=== PATIENT | male | born 1965 | race American Indian/Alaskan Native ===

== ENCOUNTER 2016-09-27 17:42 | Emergency (ER) | payer OTHER ==
[2016-09-27] MEDS ORDERED: ZOFRAN ODT PO ONE (20:16)
[2016-09-27] MEDS ORDERED: MOTRIN PO ONE (20:16)
--- NOTE | 2016-09-27 20:17 | Emergency Department Report ---
HPI - General Chief Complaint: Upper Respiratory Infection Time Seen by Provider: 09/27/16 20:00 - HPI HPI: Patient here complainiing of fever, headache, chills, diarrhea and n/v since last night. no diarrhea or vomiting today. Generalized pain 8/10. Feels achy. To otc cold and cough without relief. Denies abdominal or back pain. Reports coughing and nasal congestion. Pain to head achy frontally. Denies urinary burning, Frequency or urgency. no cp or sob. He is able to tolerate oral liquids . ED Past Medical Hx - Past Medical History Previous Medical History?: Yes Hx Headaches / Migraines: Yes - Surgical History Past Surgical History?: Yes Additional Surgical History: "3 knee surgery" "shoulder surgery" "hernia" - Family History Family history: hypertension - Social History Smoking Status: Current Every Day Smoker Substance Use Type: None - Medications Home Medications: Home Medications Medication Instructions Recorded Confirmed Last Taken Type Acetaminophen/Codeine [Tylenol #3] 1 tab PO Q6H PRN #15 tab 12/09/14 Unknown Rx Brompheniramine/Pseudoephed/Dm 5 ml PO Q6H PRN #200 syrup 09/27/16 Unknown Rx [Bromfed Dm Cough Syrup] Cetirizine HCl [ZyrTEC] 10 mg PO QDAY #14 capsule 09/27/16 Unknown Rx Fluticasone [Flonase] 1 spray NS QDAY #1 bottle 09/27/16 Unknown Rx Ibuprofen [Motrin] 600 mg PO Q6H PRN #20 tablet 09/27/16 Unknown Rx Promethazine [Phenergan TAB] 25 mg PO Q8HR PRN #12 tab 09/27/16 Unknown Rx ED Review of Systems ROS: Stated complaint: FEVER/CHILLS/DIARRHEA/VOMITING Other details as noted in HPI Comment: All other systems reviewed and negative Constitutional: chills, fever Eyes: denies: eye discharge ENT: congestion. denies: ear pain, throat pain Respiratory: cough. denies: shortness of breath, SOB with exertion, SOB at rest , stridor, wheezing Cardiovascular: denies: chest pain, palpitations, edema, syncope Gastrointestinal: nausea, vomiting, diarrhea. denies: abdominal pain, constipation Genitourinary: denies: urgency, dysuria, frequency, hematuria, discharge, testicular pain, testicular mass Musculoskeletal: myalgia. denies: back pain, joint swelling Skin: denies: rash Neurological: headache. denies: weakness, numbness, paresthesias, confusion, abnormal gait, vertigo Physical Exam - Physical Exam Vital Signs: Vital Signs 09/27/16 18:59 Temperature 99.3 F Pulse Rate 98 H Respiratory 20 Rate Blood Pressure 135/82 O2 Sat by Pulse 100 Oximetry General: This is a 51 yo male well nourished well developed in no acute distress Physical Exam: Head: Normocephalic atraumatic. Mouth: Moist, no pharyngeal exudate or erythema. Uvula is midline and oral airway is patent. No facial swelling. No peritonsillar abscesses. Neck: Supple, no C-spine tenderness, no tracheal deviation. Nontender to palpate. no adenopathy Abdomen: Soft, nontender to palpate in all quadrants, normal bowel sounds in all quadrant and negative CVA tenderness bilaterally. NOSE: Nasal congested with erythema and drainage. Max and frontal sinuses NTTP Neurological: GCS of 15, alert and oriented 3. Speech is clear and fluid. Normal gait. No motor or sensory deficit. Normal reflexes. No facial drooping. No pronator drift and negative Romberg. Eyes: Bilateral pupils equal and reactive to light, bilateral EOM intact. Bilateral sclera and conjunctiva without injection. Normal accommodation. EARS: Ziyad TM congested without erythema. ZIYAD eac NL exam abdomen: Soft, flat, nontender to palpate in all quadrants. No guarding or rebound tenderness.. No CVA tenderness bilaterally. Lungs: Clear to auscultate bilaterally no rhonchi wheezes or rales. Normal work of breathing . Dry cough extremity; No CCE. +2 pulses. No neurovascular compromise Cardiovascular: S1-S2, regular rate rhythm. No murmurs. Skin: clean Dry and intact no rash no lesions Psych: Normal mood and behavior ED Course Vital Signs 09/27/16 18:59 Temperature 99.3 F Pulse Rate 98 H Respiratory 20 Rate Blood Pressure 135/82 O2 Sat by Pulse 100 Oximetry - Reevaluation(s) Reevaluation #1: 09/27/16 21:36 Patient given Motrin 800 mg po and zofran 8 mg ODT. Tolerated oral liquid in ED without vomiting ED Medical Decision Making - Medical Decision Making ED COURSE:Patient given Motrin 800 mg po and zofran 8 mg ODT. Tolerated oral liquid in ED without vomiting. I expalined to patient he has a viral infection and need to rest for 72 hours, increase fluid intake and take motrin as instructed. He voiced understanding.Discharge home with prescription for motrin , flonase, phenergan and bromfed dm Critical care attestation.: If time is entered above; I have spent that time in minutes in the direct care of this critically ill patient, excluding procedure time. ED Disposition Clinical Impression: Viral upper respiratory tract infection with cough, Fever and chills, Nausea and vomiting in adult Disposition: DISCHARGED TO HOME OR SELFCARE Is pt being admited?: No Does the pt Need Aspirin: No Condition: Stable Instructions: Acute Nausea and Vomiting (ED), Viral Syndrome (ED), Acute Cough (ED) Additional Instructions: increase fluid intake to 2 to 3 litres of fluid daily rest for 72 hours Take fever motrin this will help with headache, body ache and fever Phenergan is for nausea and will cause drowsiness so, please do not drive or operate heavy [employer] while on this meds Prescriptions: Brompheniramine/Pseudoephed/Dm [Bromfed Dm Cough Syrup] 5 ml PO Q6H PRN #200 syrup PRN Reason: Cough Cetirizine HCl [ZyrTEC] 10 mg PO QDAY #14 capsule Fluticasone [Flonase] 1 spray NS QDAY #1 bottle Ibuprofen [Motrin] 600 mg PO Q6H PRN #20 tablet PRN Reason: Pain Promethazine [Phenergan TAB] 25 mg PO Q8HR PRN #12 tab PRN Reason: Nausea Referrals: PRIMARY CARE, [Primary Care Provider] - 09/29/16 [facility] [Outside] - 09/29/16 Forms: Accompanied Note, Work/School Release Form(ED)
[2016-09-27 22:02] VITALS: BP 129/63
== END 2016-09-27 22:02 | disposition home or self-care (01) ==
LOC: ED 17:42
DX: J06.9 Acute upper respiratory infection, unspecified (principal); R11.2 Nausea with vomiting, unspecified; G43.909 Migraine, unspecified, not intractable, without status migrainosus; F17.200 Nicotine dependence, unspecified, uncomplicated
CPT/HCPCS: 99282; Q0162

== ENCOUNTER 2017-12-22 18:48 | Emergency (ER) | payer OTHER ==
[2017-12-22] MEDS ORDERED: ZOFRAN ONE (20:11)
[2017-12-22] MEDS ORDERED: ZOFRAN IV ONE (20:31)
[2017-12-22 20:49] LABS: Basophils # (Auto) 0.1 K/mm3 (0.0-0.1); Basophils % (Auto) 1.1 % (0.0-1.8); Eosinophils % (Auto) 0.3 % (0.0-4.3); Hematocrit 47.6 % (35.5-45.6); Lymphocytes # (Auto) 1.4 K/mm3 (1.2-5.4); Lymphocytes % (Auto) 14.7 % (13.4-35.0); Mean Corpuscular HGB Conc 34 % (32-34); Mean Corpuscular Hemoglobin 29 pg (28-32); Mean Corpuscular Volume 88 fl (84-94); Monocytes # (Auto) 0.3 K/mm3 (0.0-0.8); Monocytes % (Auto) 2.8 % (0.0-7.3); Platelet Count 283 K/mm3 (140-440); Red Blood Count 5.44 M/mm3 (3.65-5.03); Red Cell Distribution Width 13.6 % (13.2-15.2)
[2017-12-22 21:17] LABS: Albumin 4.8 g/dL (3.9-5); BUN/Creatinine Ratio 12; Blood Urea Nitrogen 11 mg/dL (9-20); Calcium 10.3 mg/dL (8.4-10.2); Hemolysis Index 103; Lipase 22 units/L (13-60)
[2017-12-22 21:24] LABS: Alanine Aminotransferase 14 units/L (7-56)
[2017-12-23] MEDS ORDERED: NACL 0.9% 1000 ML 1,000 ML ONE (03:21)
[2017-12-23] MEDS ORDERED: ZOFRAN IV ONE (03:50)
[2017-12-23 04:27] VITALS: BP 124/83
--- NOTE | 2017-12-23 04:46 | XRay Report ---
FINAL REPORT PROCEDURE: XR CHEST 1V AP TECHNIQUE: Chest radiograph anteroposterior view. CPT 82705 HISTORY: claudia COMPARISON: No prior studies are available for comparison. FINDINGS: Heart: Normal. Mediastinum/Vessels: Normal. Lungs/Pleural space: Normal. Bony thorax: No acute osseous abnormality. Life support devices: None. IMPRESSION: No acute cardiopulmonary abnormality.
--- NOTE | 2017-12-23 05:15 | Emergency Department Report ---
ED N/V/D HPI - General Chief complaint: Abdominal Pain Stated complaint: ABD PAIN Time Seen by Provider: 12/23/17 03:50 Source: patient Mode of arrival: Stretcher Limitations: No Limitations - History of Present Illness Initial comments: Patient became acutely ill earlier in the previous afternoon from visit in this emergency department, when he developed epigastric discomfort, sometime after eating, but this was a food supplement, equate, like Ensure. He was concerned that he had left without, and that it got hot and may be spoiled before being refrigerated, but this was a room temperature shelf life supplement, and does not routinely need refrigeration, and had not been opened prior to his initial drink in it. Nonetheless, he reports not having anything else to eat during the day, and had not had any other exposures. He vomited several times, had a lot of crampy epigastric and mid abdominal discomfort, but there has not been any progression since that time, and no lower abdominal Discomfort either on the right or left side. He has not had any diarrhea either. Patient's health is good in general, and he has no prior history of gastrointestinal problems. - Related Data Previous Rx's Medication Instructions Recorded Last Taken Type Acetaminophen/Codeine [Tylenol #3] 1 tab PO Q6H PRN #15 tab 12/09/14 Unknown Rx Brompheniramine/Pseudoephed/Dm 5 ml PO Q6H PRN #200 syrup 09/27/16 Unknown Rx [Bromfed Dm Cough Syrup] Cetirizine HCl [ZyrTEC] 10 mg PO QDAY #14 capsule 09/27/16 Unknown Rx Fluticasone [Flonase] 1 spray NS QDAY #1 bottle 09/27/16 Unknown Rx Ibuprofen [Motrin] 600 mg PO Q6H PRN #20 tablet 09/27/16 Unknown Rx Promethazine [Phenergan TAB] 25 mg PO Q8HR PRN #12 tab 09/27/16 Unknown Rx Dicyclomine [Bentyl] 10 mg PO QID PRN #15 capsule 12/23/17 Unknown Rx HYDROcodone/APAP 5-325 [[place] 1 each PO Q6HR PRN #10 tablet 12/23/17 Unknown Rx 5/325] Ondansetron [Zofran ODT TAB] 8 mg PO Q8HR PRN #10 tab.rapdis 12/23/17 Unknown Rx Allergies Allergy/AdvReac Type Severity Reaction Status Date / Time No Known Allergies Allergy Unverified 12/09/14 16:23 ED Review of Systems ROS: Stated complaint: ABD PAIN Other details as noted in HPI ED Past Medical Hx - Past Medical History Hx Headaches / Migraines: Yes (Migraines) - Surgical History Additional Surgical History: "3 knee surgery" "shoulder surgery" "hernia" - Social History Smoking Status: Never Smoker Substance Use Type: None - Medications Home Medications: Home Medications Medication Instructions Recorded Confirmed Last Taken Type Acetaminophen/Codeine [Tylenol #3] 1 tab PO Q6H PRN #15 tab 12/09/14 Unknown Rx Brompheniramine/Pseudoephed/Dm 5 ml PO Q6H PRN #200 syrup 09/27/16 Unknown Rx [Bromfed Dm Cough Syrup] Cetirizine HCl [ZyrTEC] 10 mg PO QDAY #14 capsule 09/27/16 Unknown Rx Fluticasone [Flonase] 1 spray NS QDAY #1 bottle 09/27/16 Unknown Rx Ibuprofen [Motrin] 600 mg PO Q6H PRN #20 tablet 09/27/16 Unknown Rx Promethazine [Phenergan TAB] 25 mg PO Q8HR PRN #12 tab 09/27/16 Unknown Rx Dicyclomine [Bentyl] 10 mg PO QID PRN #15 capsule 12/23/17 Unknown Rx HYDROcodone/APAP 5-325 [[place] 1 each PO Q6HR PRN #10 tablet 12/23/17 Unknown Rx 5/325] Ondansetron [Zofran ODT TAB] 8 mg PO Q8HR PRN #10 tab.rapdis 12/23/17 Unknown Rx ED Physical Exam - General Limitations: No Limitations ED Course Vital Signs 12/22/17 12/22/17 12/23/17 19:48 20:25 01:05 Temperature 36.4 C L 36.4 C L Pulse Rate 70 70 Respiratory 16 Rate Blood Pressure 136/79 136/79 114/67 O2 Sat by Pulse 99 100 99 Oximetry 12/23/17 12/23/17 12/23/17 01:15 01:30 01:45 Temperature Pulse Rate Respiratory Rate Blood Pressure 108/58 97/55 116/72 O2 Sat by Pulse 98 97 98 Oximetry 0612/23/17 12/23/17 02:00 02:15 02:30 Temperature Pulse Rate Respiratory Rate Blood Pressure 110/68 114/70 120/62 O2 Sat by Pulse 98 98 98 Oximetry 12/23/17 12/23/17 12/23/17 02:45 03:00 03:15 Temperature Pulse Rate Respiratory Rate Blood Pressure 127/61 116/67 110/69 O2 Sat by Pulse 98 97 98 Oximetry 12/23/17 12/23/17 12/23/17 03:30 03:46 04:00 Temperature Pulse Rate Respiratory Rate Blood Pressure 110/66 106/73 124/73 O2 Sat by Pulse 99 99 98 Oximetry 12/23/17 12/23/17 04:15 04:27 Temperature 36.4 C Pulse Rate Respiratory Rate Blood Pressure 124/83 O2 Sat by Pulse 99 Oximetry - Reevaluation(s) Reevaluation #1: 12/23/17 05:12 Patient significantly improved after rehydration, and had been previously medicated with ondansetron, patient was remedicated, and after IV fluids were given, was given a oral fluid challenge, which he tolerated kept down without any significant nausea, no vomiting, and no recurrence of the abdominal pain 12/23/17 05:13 ED Medical Decision Making - Lab Data Result diagrams: 12/22/17 20:31 12/22/17 20:31 - Radiology Data Secondary note is made that chest x-ray was ordered in error, and request for stop was entered after patient's x-ray had been performed. This was not necessary for pertinent patient's examination. - Medical Decision Making Patient has had typical findings of an acute gastroenteritis, likely is result of some food intolerance, or perhaps he had had a viral infection, and first symptoms were brought on when he tried to drink his food supplement. In any case, symptoms have subsided substantially, and he was improved with rehydration and treatment with antiemetics. Patient is stable for discharge, prefers to go home, will be treated with antiemetics, rest, work release for 2 days, and gradual resumption of a regular diet. Patient's lab values are stable , he is modestly dehydrated, and also moderate swelling electrolyte depleted with borderline CO2 level. This is likely secondary to volume depletion, and will resolve spontaneously. There are no physical or laboratory findings to suggest a more serious acute abdominal pathology. - Differential Diagnosis gastroenteritis, gastritis Critical Care Time: No Critical care attestation.: If time is entered above; I have spent that time in minutes in the direct care of this critically ill patient, excluding procedure time. ED Disposition Clinical Impression: Dehydration, Gastroenteritis Disposition: - TO HOME OR SELFCARE Is pt being admited?: No Does the pt Need Aspirin: No Condition: Stable Instructions: Gastroenteritis (ED), Dehydration (ED) Prescriptions: Dicyclomine [Bentyl] 10 mg PO QID PRN #15 capsule PRN Reason: cramping HYDROcodone/APAP 5-325 [[place] 5/325] 1 each PO Q6HR PRN #10 tablet PRN Reason: Pain Ondansetron [Zofran ODT TAB] 8 mg PO Q8HR PRN #10 tab.rapdis PRN Reason: Nausea Referrals: MONISHA CORRIGAN MD [Primary Care Provider] - 3-5 Days Forms: Work/School Release Form(ED) Time of Disposition: 05:17
== END 2017-12-23 05:30 | disposition home or self-care (01) ==
LOC: ED 18:48
DX: K52.9 Noninfective gastroenteritis and colitis, unspecified (principal); E86.0 Dehydration; G43.909 Migraine, unspecified, not intractable, without status migrainosus
CPT/HCPCS: 36415; 71045; 80053; 83690; 85025; 96374; 96376; 99284; J2405; J7030

== ENCOUNTER 2018-03-30 06:15 | Emergency (ER) | payer OTHER ==
[2018-03-30 06:21] VITALS: BP 140/81
[2018-03-30] MEDS ORDERED: MOTRIN PO ONE (06:23)
--- NOTE | 2018-03-30 09:19 | Emergency Department Report ---
ED ENT HPI - General Chief complaint: Dental/Oral Stated complaint: TOOTH ACHE Source: patient Mode of arrival: Ambulatory Limitations: No Limitations - History of Present Illness Initial comments: This 53-year-old -[place] male who presents with toothache to right lower side for 2 days. Patient states symptoms started several months ago when he sustained units 2 months ago and placed on antibiotics and pain medication which improved symptoms. Patient states he is working on a pain management plan and will follow-up with them in 2 weeks to have root canal. Patient states 2 days ago symptoms and increased and today he was unable to work because pain is 10 out of 10 on pain scale and is a constant throbbing sensation. He is currently using ibuprofen with no improvement of symptoms. Patient denies difficulty swallowing, drooling, shortness of breath, and chest pain. MD complaint: tooth pain Onset/Timin -: days(s) Location: tooth # (#27) 1 - dental caries and partial tooth Severity: severe Severity scale (0 -10): 10 Quality: aching, constant, other (throbbing) Consistency: constant Improves with: none Worsens with: eating Context- Dental: history of dental caries, trauma (broken tooth), poor dental care Associated Symptoms: gum swelling, toothache - Related Data Previous Rx's Medication Instructions Recorded Last Taken Type Acetaminophen/Codeine [Tylenol #3] 1 tab PO Q6H PRN #15 tab 12/09/14 Unknown Rx Brompheniramine/Pseudoephed/Dm 5 ml PO Q6H PRN #200 syrup 09/27/16 Unknown Rx [Bromfed Dm Cough Syrup] Cetirizine HCl [ZyrTEC] 10 mg PO QDAY #14 capsule 09/27/16 Unknown Rx Fluticasone [Flonase] 1 spray NS QDAY #1 bottle 09/27/16 Unknown Rx Ibuprofen [Motrin] 600 mg PO Q6H PRN #20 tablet 09/27/16 Unknown Rx Promethazine [Phenergan TAB] 25 mg PO Q8HR PRN #12 tab 09/27/16 Unknown Rx Dicyclomine [Bentyl] 10 mg PO QID PRN #15 capsule 12/23/17 Unknown Rx HYDROcodone/APAP 5-325 [[place] 1 each PO Q6HR PRN #10 tablet 12/23/17 Unknown Rx 5/325] Ondansetron [Zofran ODT TAB] 8 mg PO Q8HR PRN #10 tab.rapdis 12/23/17 Unknown Rx Acetaminophen/Codeine [Tylenol 1 tab PO Q6H PRN #8 tab 03/30/18 Unknown Rx /Codeine # 3 tab] Clindamycin [Clindamycin CAP] 300 mg PO Q8H #21 cap 03/30/18 Unknown Rx Allergies Allergy/AdvReac Type Severity Reaction Status Date / Time No Known Allergies Allergy Unverified 12/09/14 16:23 ED Dental HPI - General Chief complaint: Dental/Oral Stated complaint: TOOTH ACHE Source: patient Mode of arrival: Ambulatory Limitations: No Limitations - Related Data Previous Rx's Medication Instructions Recorded Last Taken Type Acetaminophen/Codeine [Tylenol #3] 1 tab PO Q6H PRN #15 tab 12/09/14 Unknown Rx Brompheniramine/Pseudoephed/Dm 5 ml PO Q6H PRN #200 syrup 09/27/16 Unknown Rx [Bromfed Dm Cough Syrup] Cetirizine HCl [ZyrTEC] 10 mg PO QDAY #14 capsule 09/27/16 Unknown Rx Fluticasone [Flonase] 1 spray NS QDAY #1 bottle 09/27/16 Unknown Rx Ibuprofen [Motrin] 600 mg PO Q6H PRN #20 tablet 09/27/16 Unknown Rx Promethazine [Phenergan TAB] 25 mg PO Q8HR PRN #12 tab 09/27/16 Unknown Rx Dicyclomine [Bentyl] 10 mg PO QID PRN #15 capsule 12/23/17 Unknown Rx HYDROcodone/APAP 5-325 [[place] 1 each PO Q6HR PRN #10 tablet 12/23/17 Unknown Rx 5/325] Ondansetron [Zofran ODT TAB] 8 mg PO Q8HR PRN #10 tab.rapdis 12/23/17 Unknown Rx Acetaminophen/Codeine [Tylenol 1 tab PO Q6H PRN #8 tab 03/30/18 Unknown Rx /Codeine # 3 tab] Clindamycin [Clindamycin CAP] 300 mg PO Q8H #21 cap 03/30/18 Unknown Rx Allergies Allergy/AdvReac Type Severity Reaction Status Date / Time No Known Allergies Allergy Unverified 12/09/14 16:23 ED Review of Systems ROS: Stated complaint: TOOTH ACHE Other details as noted in HPI Constitutional: denies: chills, fever ENT: dental pain. denies: ear pain, throat pain Respiratory: denies: cough, shortness of breath, wheezing Cardiovascular: denies: chest pain, palpitations Gastrointestinal: denies: abdominal pain, nausea, diarrhea Neurological: denies: headache, weakness, paresthesias Psychiatric: denies: anxiety, depression ED Past Medical Hx - Past Medical History Previous Medical History?: Yes Hx Headaches / Migraines: Yes (Migraines) - Surgical History Past Surgical History?: Yes Additional Surgical History: "3 knee surgery" "shoulder surgery" "hernia" - Social History Smoking Status: Current Every Day Smoker Substance Use Type: None - Medications Home Medications: Home Medications Medication Instructions Recorded Confirmed Last Taken Type Acetaminophen/Codeine [Tylenol #3] 1 tab PO Q6H PRN #15 tab 12/09/14 Unknown Rx Brompheniramine/Pseudoephed/Dm 5 ml PO Q6H PRN #200 syrup 09/27/16 Unknown Rx [Bromfed Dm Cough Syrup] Cetirizine HCl [ZyrTEC] 10 mg PO QDAY #14 capsule 09/27/16 Unknown Rx Fluticasone [Flonase] 1 spray NS QDAY #1 bottle 09/27/16 Unknown Rx Ibuprofen [Motrin] 600 mg PO Q6H PRN #20 tablet 09/27/16 Unknown Rx Promethazine [Phenergan TAB] 25 mg PO Q8HR PRN #12 tab 09/27/16 Unknown Rx Dicyclomine [Bentyl] 10 mg PO QID PRN #15 capsule 12/23/17 Unknown Rx HYDROcodone/APAP 5-325 [[place] 1 each PO Q6HR PRN #10 tablet 12/23/17 Unknown Rx 5/325] Ondansetron [Zofran ODT TAB] 8 mg PO Q8HR PRN #10 tab.rapdis 12/23/17 Unknown Rx Acetaminophen/Codeine [Tylenol 1 tab PO Q6H PRN #8 tab 03/30/18 Unknown Rx /Codeine # 3 tab] Clindamycin [Clindamycin CAP] 300 mg PO Q8H #21 cap 03/30/18 Unknown Rx ED Physical Exam - General Limitations: No Limitations General appearance: alert, in no apparent distress - ENT ENT exam: Present: mucous membranes moist, other (partial avulsion of #27, surrounding tissue swelling, dark dental decay, tenderness) - Respiratory Respiratory exam: Present: normal lung sounds bilaterally. Absent: respiratory distress - Cardiovascular Cardiovascular Exam: Present: regular rate, normal rhythm. Absent: systolic murmur, diastolic murmur, rubs, gallop - GI/Abdominal GI/Abdominal exam: Present: soft, normal bowel sounds - Neurological Exam Neurological exam: Present: alert, oriented X3 - Psychiatric Psychiatric exam: Present: normal affect, normal mood - Skin Skin exam: Present: warm, dry, intact, normal color. Absent: rash ED Course Vital Signs 03/30/18 06:20 Temperature 98.4 F Pulse Rate 55 L Respiratory 16 Rate Blood Pressure 140/81 O2 Sat by Pulse 100 Oximetry ED Medical Decision Making - Medical Decision Making Patient is stable and was examined by me. Given ibuprofen 800 mg po once in ER. Susceptible of dental fracture and dental caries. Start clindamycin and tylenol #3. Discussed plan with patient. Discharged home stable. Follow up with dentist. Critical care attestation.: If time is entered above; I have spent that time in minutes in the direct care of this critically ill patient, excluding procedure time. ED Disposition Clinical Impression: Toothache, Dental caries Fractured tooth Qualifiers: Encounter type: initial encounter Fracture type: open Qualified Code(s): S02.5XXB - Fracture of tooth (traumatic), initial encounter for open fracture Disposition: DC-01 TO HOME OR SELFCARE Is pt being admited?: No Does the pt Need Aspirin: No Condition: Stable Instructions: Dental Caries (ED), Toothache (ED) Additional Instructions: Complete all days of clindamycin as prescribed. Of drink alcohol while taking antibiotics for about 24 hours after completion. Follow up with Dentist in 24-72 hours. Prescriptions: Acetaminophen/Codeine [Tylenol /Codeine # 3 tab] 1 tab PO Q6H PRN #8 tab PRN Reason: Pain , Severe (7-10) Clindamycin [Clindamycin CAP] 300 mg PO Q8H #21 cap Referrals: [facility] [Outside] - 3-5 Days [facility] [Outside] - 3-5 Days [facility] [Outside] - 3-5 Days Time of Disposition: 09:30 Print Language: IRISH
== END 2018-03-30 09:50 | disposition home or self-care (01) ==
LOC: ED 06:15
DX: S02.5XXB Fracture of tooth (traumatic), initial encounter for open fracture (principal); K02.9 Dental caries, unspecified; G43.909 Migraine, unspecified, not intractable, without status migrainosus; F17.200 Nicotine dependence, unspecified, uncomplicated; X58.XXXA Exposure to other specified factors, initial encounter; Y93.89 Activity, other specified; Y92.89 Other specified places as the place of occurrence of the external cause; Y99.8 Other external cause status
CPT/HCPCS: 99282

== ENCOUNTER 2022-01-27 14:57 | Emergency (ER) | payer OTHER ==
[2022-01-27] MEDS ORDERED: LORazepam 1 MG TAB PO ONE (15:35)
--- NOTE | 2022-01-27 15:42 | Emergency Department Report ---
ED Shortness of Breath HPI - General Chief Complaint: Dyspnea/Respdistress Stated Complaint: CHARLI Time Seen by Provider: 01/27/22 15:28 Source: patient, EMS Mode of arrival: Stretcher Limitations: No Limitations - History of Present Illness Initial Comments: Patient is a 56-year-old male brought in by EMS with complaint of abdominal pain, chest discomfort and shortness of breath beginning at approximately 11 AM this morning. He reports sensation of chest fullness and difficulty getting in a deep breath. He also reports chills and cold sweats. He is vaccinated for COVID. Denies any sick contacts. - Related Data Previous Rx's Medication Instructions Recorded Last Taken Type Acetaminophen/Codeine [Tylenol #3] 1 tab PO Q6H PRN #15 tab 12/09/14 Unknown Rx Brompheniramine/Pseudoephed/Dm 5 ml PO Q6H PRN #200 syrup 09/27/16 Unknown Rx [Bromfed Dm Cough Syrup] Cetirizine HCl [ZyrTEC] 10 mg PO QDAY #14 capsule 09/27/16 Unknown Rx Fluticasone [Flonase] 1 spray NS QDAY #1 bottle 09/27/16 Unknown Rx Ibuprofen [Motrin] 600 mg PO Q6H PRN #20 tablet 09/27/16 Unknown Rx Promethazine [Phenergan TAB] 25 mg PO Q8HR PRN #12 tab 09/27/16 Unknown Rx Dicyclomine [Bentyl] 10 mg PO QID PRN #15 capsule 12/23/17 Unknown Rx HYDROcodone/APAP 5-325 [Superior 1 each PO Q6HR PRN #10 tablet 12/23/17 Unknown Rx 5/325] Ondansetron [Zofran ODT TAB] 8 mg PO Q8HR PRN #10 tab.rapdis 12/23/17 Unknown Rx Acetaminophen/Codeine [Tylenol 1 tab PO Q6H PRN #8 tab 03/30/18 Unknown Rx /Codeine # 3 tab] Clindamycin [Clindamycin CAP] 300 mg PO Q8H #21 cap 03/30/18 Unknown Rx Allergies Allergy/AdvReac Type Severity Reaction Status Date / Time No Known Allergies Allergy Unverified 01/27/22 15:11 ED Review of Systems ROS: Stated complaint: CHARLI Other details as noted in HPI Constitutional: chills. denies: fever Respiratory: shortness of breath. denies: cough, wheezing Cardiovascular: chest pain. denies: palpitations Gastrointestinal: abdominal pain. denies: nausea, vomiting Musculoskeletal: denies: back pain, joint swelling, arthralgia Skin: denies: rash, lesions Neurological: denies: headache, weakness, paresthesias Psychiatric: denies: anxiety, depression ED Past Medical Hx - Past Medical History Hx Headaches / Migraines: Yes (Migraines) - Surgical History Additional Surgical History: "3 knee surgery" "shoulder surgery" "hernia" - Social History Smoking Status: Current Every Day Smoker Substance Use Type: None - Medications Home Medications: Home Medications Medication Instructions Recorded Confirmed Last Taken Type Acetaminophen/Codeine [Tylenol #3] 1 tab PO Q6H PRN #15 tab 12/09/14 Unknown Rx Brompheniramine/Pseudoephed/Dm 5 ml PO Q6H PRN #200 syrup 09/27/16 Unknown Rx [Bromfed Dm Cough Syrup] Cetirizine HCl [ZyrTEC] 10 mg PO QDAY #14 capsule 09/27/16 Unknown Rx Fluticasone [Flonase] 1 spray NS QDAY #1 bottle 09/27/16 Unknown Rx Ibuprofen [Motrin] 600 mg PO Q6H PRN #20 tablet 09/27/16 Unknown Rx Promethazine [Phenergan TAB] 25 mg PO Q8HR PRN #12 tab 09/27/16 Unknown Rx Dicyclomine [Bentyl] 10 mg PO QID PRN #15 capsule 12/23/17 Unknown Rx HYDROcodone/APAP 5-325 [Superior 1 each PO Q6HR PRN #10 tablet 12/23/17 Unknown Rx 5/325] Ondansetron [Zofran ODT TAB] 8 mg PO Q8HR PRN #10 tab.rapdis 12/23/17 Unknown Rx Acetaminophen/Codeine [Tylenol 1 tab PO Q6H PRN #8 tab 03/30/18 Unknown Rx /Codeine # 3 tab] Clindamycin [Clindamycin CAP] 300 mg PO Q8H #21 cap 03/30/18 Unknown Rx ED Physical Exam - General Limitations: No Limitations General appearance: alert, anxious - Head Head exam: Present: atraumatic, normocephalic - Neck Neck exam: Present: normal inspection. Absent: tenderness - Respiratory Respiratory exam: Present: normal lung sounds bilaterally, respiratory distress (Mild) - Cardiovascular Cardiovascular Exam: Present: regular rate, normal rhythm, normal heart sounds - GI/Abdominal GI/Abdominal exam: Present: soft. Absent: distended, tenderness - Rectal Rectal exam: Present: deferred - Neurological Exam Neurological exam: Present: alert, oriented X3 - Psychiatric Psychiatric exam: Present: normal affect, normal mood - Skin Skin exam: Present: warm, dry, intact, normal color ED Course Vital Signs 01/27/22 01/27/22 01/27/22 15:07 15:30 15:45 Temperature 98.8 F Pulse Rate 82 90 83 Respiratory 18 16 18 Rate Blood Pressure 118/77 Blood Pressure 132/78 [Left] O2 Sat by Pulse 100 100 100 Oximetry 01/27/22 01/27/22 01/27/22 16:01 16:15 16:31 Temperature Pulse Rate 63 70 82 Respiratory 14 20 21 Rate Blood Pressure 113/77 118/77 118/77 Blood Pressure [Left] O2 Sat by Pulse 100 100 100 Oximetry 01/27/22 01/27/22 01/27/22 16:45 17:01 17:15 Temperature Pulse Rate 76 74 74 Respiratory 19 21 9 L Rate Blood Pressure 113/77 117/94 117/94 Blood Pressure [Left] O2 Sat by Pulse 100 100 100 Oximetry 01/27/22 01/27/22 01/27/22 17:31 17:46 18:01 Temperature Pulse Rate 83 85 71 Respiratory 17 17 13 Rate Blood Pressure 117/94 117/94 130/67 Blood Pressure [Left] O2 Sat by Pulse 100 100 100 Oximetry 01/27/22 18:15 Temperature Pulse Rate 66 Respiratory 14 Rate Blood Pressure 117/94 Blood Pressure [Left] O2 Sat by Pulse 100 Oximetry ED Medical Decision Making - Lab Data Result diagrams: 01/27/22 15:47 01/27/22 15:47 - Medical Decision Making CBC and CMP grossly unremarkable. D-dimer elevated and is greater than 2000. CTA chest negative for PE or any other acute findings. Patient given morphine for pain. His troponin is also unremarkable. EKG normal sinus rhythm with rate of 72 with normal axis and intervals. Normal ST segments and T waves. On reassessment patient states his symptoms are resolved. Heart score is 1. I discussed results with him. He is stable for discharge home with return precautions. Critical care attestation.: If time is entered above; I have spent that time in minutes in the direct care of this critically ill patient, excluding procedure time. ED Disposition Clinical Impression: Shortness of breath, Nonspecific chest pain Disposition: 01 HOME / SELF CARE / HOMELESS Is pt being admited?: No Does the pt Need Aspirin: No Condition: Stable Instructions: Nonspecific Chest Pain, Adult Additional Instructions: Please follow-up with your primary doctor within 1 to 2 weeks. You may return if your symptoms worsen. Time of Disposition: 20:55
--- NOTE | 2022-01-27 16:08 | XRay Report ---
XR chest 1V ap INDICATION / CLINICAL INFORMATION: Dyspnea. COMPARISON: 12/23/2017 FINDINGS: SUPPORT DEVICES: None. HEART /PULMONARY VASCULATURE: No significant abnormality. LUNGS / PLEURA: No significant pulmonary or pleural abnormality. No pneumothorax. ADDITIONAL FINDINGS: No significant additional findings. IMPRESSION: 1. No acute findings. Signer Name: Crispin Jernigan MD Signed: 01/27/2022 4:03 PM Workstation Name: [id number]
[2022-01-27 16:36] LABS: Alanine Aminotransferase 16 units/L (7-56); Albumin 5.1 g/dL (3.9-5); BUN/Creatinine Ratio 13; Blood Urea Nitrogen 14 mg/dL (9-20); Calcium 10.9 mg/dL (8.4-10.2); Hemolysis Index 26
[2022-01-27 17:00] LABS: Basophils # (Auto) 0.1 K/mm3 (0.0-0.1); Eosinophils % (Auto) 0.3 % (0.0-4.3); Hematocrit 39.8 % (35.5-45.6); Hemoglobin 13.5 gm/dl (11.8-15.2); Lymphocytes # (Auto) 1.3 K/mm3 (1.2-5.4); Lymphocytes % (Auto) 15.1 % (13.4-35.0); Mean Corpuscular HGB Conc 34 % (32-34); Mean Corpuscular Volume 87 fl (84-94); Monocytes # (Auto) 0.5 K/mm3 (0.0-0.8); Monocytes % (Auto) 5.1 % (0.0-7.3); Platelet Count 249 K/mm3 (140-440); Red Blood Count 4.59 M/mm3 (3.65-5.03); Red Cell Distribution Width 14.1 % (13.2-15.2)
[2022-01-27 17:12] VITALS: BP 117/94
[2022-01-27] MEDS ORDERED: ONDANSETRON 4 MG/2 ML INJ ONE (17:49)
[2022-01-27] MEDS ORDERED: MORPHINE 4 MG/1 ML INJ IV ONE (19:05)
--- NOTE | 2022-01-27 20:46 | Cat Scan Report ---
CTA CHEST WITH CONTRAST INDICATION / CLINICAL INFORMATION: Elevated dimer, chest pain, rule out PE. TECHNIQUE: Axial CT images were obtained through the chest after injection of IV contrast. 3 plane SD P and/or 3D reconstructions were produced. All CT scans at this location are performed using CT dose reduction for ALARA by means of automated exposure control. COMPARISON: None available. FINDINGS: PULMONARY EMBOLUS: None. THORACIC AORTA: No significant abnormality. HEART: No significant abnormality. CORONARY ARTERY CALCIFICATION: Absent -- None. MEDIASTINUM / SANJUANITA: No significant abnormality. PLEURA: No pleural effusion. No pneumothorax. LUNGS: No acute air space or interstitial disease. ADDITIONAL FINDINGS: None. UPPER ABDOMEN: No acute findings. SKELETAL STRUCTURES: No significant osseous abnormality. IMPRESSION: 1. No CT evidence for pulmonary embolism. 2. No acute findings. Signer Name: Alan Vigil MD Signed: 01/27/2022 8:41 PM Workstation Name: [id number]
--- NOTE | 2022-01-28 14:09 | Electrocardiograph Report ---
[facility] Test Date: 2022-01-27 Test Time: 15:26:20 Pat Name: KASANDRA LIN Department: Room: Gender: M Toggler: GP : 1965 Requested By: SUYAPA COLEMAN Order Number: [id number] Reading MD: Codey Green Measurements Intervals [place] Rate: 72 P: 46 [place]: 185 QRS: 57 QRSD: 104 T: 37 QT: 408 QTc: 448 Interpretive Statements Sinus rhythm No previous ECG available for comparison Electronically Signed On 01-28-2022 14:08:25 EDT by Codey Green
== END 2022-01-27 21:45 | disposition home or self-care (01) ==
LOC: ED 14:57
DX: R06.02 Shortness of breath (principal); R07.9 Chest pain, unspecified; G43.909 Migraine, unspecified, not intractable, without status migrainosus; F17.200 Nicotine dependence, unspecified, uncomplicated
CPT/HCPCS: 36415; 71045; 71275; 80053; 84484; 85025; 85379; 93005; 96374; 99285; J2270; J2405; Q9967